=== PATIENT | female | born 1975 | race Caucasian/White ===

== ENCOUNTER 2021-01-03 19:21 | Emergency (ER) | payer OTHER ==
[~2021-01-03] VITALS: Ht 157.5 cm; Wt 73.9 kg
[2021-01-03] MEDS ORDERED: SODIUM CHLORIDE 0.9% 1000ML 1,000 ML IV STA (19:45)
[2021-01-03] MEDS ORDERED: FAMOTIDINE 20 MG/2 ML VIAL IV ONE ×2 (19:45→20:09)
[2021-01-03] MEDS ORDERED: ONDANSETRON HCL INJ 2MG/ML 2ML 2 MG/ML VIAL IV ONE (19:45)
[2021-01-03] MEDS ORDERED: MORPHINE SULFATE INJ 4 MG/ML INJ 1ML IV STA (19:45)
[2021-01-03] MEDS ORDERED: ONDANSETRON HCL INJ 2MG/ML 2ML 2 MG/ML VIAL ONE (20:08)
[2021-01-03] MEDS ORDERED: MORPHINE SULFATE INJ 4 MG/ML INJ 1ML ONE (20:09)
[2021-01-03] MEDS ORDERED: SODIUM CHLORIDE 0.9% 1000ML 1,000 ML ONE (20:09)
[2021-01-03] MEDS ORDERED: SODIUM CHLORIDE 0.9% 50ML 50 ML ONE (20:57)
[2021-01-03] MEDS ORDERED: IOPAMIDOL 370 MG/ML 200 ML INFUS..BTL INJ ONE (20:57)
[2021-01-03] MEDS ORDERED: KETOROLAC TROMETHAMINE 30 MG/ML VIAL IV ONE (22:00)
[2021-01-03] MEDS ORDERED: HYDROCODONE/APAP 5MG-325MG TAB PO ONE (22:00)
[2021-01-03] MEDS ORDERED: HYDROCODONE/APAP 5MG-325MG TAB ONE (22:02)
[2021-01-03] MEDS ORDERED: KETOROLAC TROMETHAMINE 60 MG/2 ML VIAL ONE (22:04)
[2021-01-03] MEDS ORDERED: IBUPROFEN IB200 MG PO (22:21)
[2021-01-03] MEDS ORDERED: ACETAMINOPHEN-1 EAC4 PO (22:21)
[2021-01-03] MEDS ORDERED: ONDANSETRON ODT4 MG PO (22:21)
[2021-01-03 22:42] VITALS: BP 142/98
== END 2021-01-03 22:42 | disposition home or self-care (01) ==
LOC: FSED 19:49
DX: M41.84 Other forms of scoliosis, thoracic region (principal); X50.1XXA Overexertion from prolonged static or awkward postures, initial encounter; Y93.D9 Activity, other involving arts and handcrafts; E11.65 Type 2 diabetes mellitus with hyperglycemia
CPT/HCPCS: 74177; 80048; 80076; 81003; 81025; 82553; 84484; 85025; 85379; 96374; 96375; 96376; 99284; J1885; J2270; J2405; J7030; Q9967